=== PATIENT | female | born 1930 | race Caucasian/White ===

== ENCOUNTER 2016-10-06 08:05 | Inpatient (IN) | payer MEDICARE, OTHER ==
[~2016-10-06] VITALS: Ht 157.5 cm; Wt 66.2 kg
[2016-10-06 09:21] LABS: RED BLOOD COUNT 5.82 M/UL (4.00-5.10); WHITE BLOOD COUNT 5.5 K/UL (4.5-11.0)
[2016-10-06 09:45] LABS: BUN/CREATININE RATIO 27 (0-10)
[2016-10-06] MEDS ORDERED: PLAVIX 75 MG TA75 MG PO (13:31)
[2016-10-06] MEDS ORDERED: ZOCOR 10 MG TAB10 MG PO (13:31)
[2016-10-06] MEDS ORDERED: SYNTHROID 125125 MCG PO (13:32)
[2016-10-06] MEDS ORDERED: FEOSOL325 MG PO (13:33)
[2016-10-06] MEDS ORDERED: ADVAIR 100-501 EACH INH (13:34)
[2016-10-06] MEDS ORDERED: COLACE 100MG C100 MG PO (13:34)
[2016-10-06] MEDS ORDERED: ASPIR 8181 MG PO (13:34)
[2016-10-06] MEDS ORDERED: PROAIR HFA8.5 GM INH (13:35)
[2016-10-07 05:41] LABS: HEMOGLOBIN 16.3 gm/dl (12.3-15.3); RED BLOOD COUNT 5.32 M/UL (4.00-5.10); WHITE BLOOD COUNT 5.7 K/UL (4.5-11.0)
[2016-10-07 06:08] LABS: BUN/CREATININE RATIO 29 (0-10)
[2016-10-08 04:37] LABS: HEMOGLOBIN 16.2 gm/dl (12.3-15.3); RED BLOOD COUNT 5.22 M/UL (4.00-5.10); WHITE BLOOD COUNT 6.1 K/UL (4.5-11.0)
[2016-10-08 04:53] LABS: BUN/CREATININE RATIO 27 (0-10)
[2016-10-09 04:46] LABS: HEMOGLOBIN 15.9 gm/dl (12.3-15.3); RED BLOOD COUNT 5.19 M/UL (4.00-5.10); WHITE BLOOD COUNT 5.5 K/UL (4.5-11.0)
[2016-10-09 05:01] LABS: BUN/CREATININE RATIO 27 (0-10)
[2016-10-11 05:43] LABS: RED BLOOD COUNT 5.59 M/UL (4.00-5.10); WHITE BLOOD COUNT 5.5 K/UL (4.5-11.0)
[2016-10-11 06:12] LABS: BUN/CREATININE RATIO 40 (0-10)
[2016-10-13 06:27] LABS: HEMOGLOBIN 17.2 gm/dl (12.3-15.3); RED BLOOD COUNT 5.52 M/UL (4.00-5.10); WHITE BLOOD COUNT 5.1 K/UL (4.5-11.0)
[2016-10-13 06:53] LABS: BUN/CREATININE RATIO 33 (0-10)
== END 2016-10-13 19:32 | DRG 189 ==
LOC: ER1 08:05 → ZEROF 11:31 → CCU 13:55 → M/S 10-07 15:15
PROVIDERS: Internal Medicine; Specialist/Technologist Athletic Trainer; ADMIT Family Medicine
DX: J96.22 Acute and chronic respiratory failure with hypercapnia (principal); J96.21 Acute and chronic respiratory failure with hypoxia; Z99.81 Dependence on supplemental oxygen; J44.9 Chronic obstructive pulmonary disease, unspecified; F17.210 Nicotine dependence, cigarettes, uncomplicated; Z91.19 Patient's noncompliance with other medical treatment and regimen; Z79.82 Long term (current) use of aspirin; Z79.899 Other long term (current) drug therapy; E03.9 Hypothyroidism, unspecified; I25.10 Atherosclerotic heart disease of native coronary artery without angina pectoris; Z95.5 Presence of coronary angioplasty implant and graft; D75.89 Other specified diseases of blood and blood-forming organs; K58.1 Irritable bowel syndrome with constipation; Z88.8 Allergy status to other drugs, medicaments and biological substances; I27.2 Other secondary pulmonary hypertension; D75.1 Secondary polycythemia
CPT/HCPCS: ECHO; 36415; 36600; 71010; 71020; 71250; 80048; 80053; 82550; 82553; 82607; 82746; 82803; 83874; 83880; 84443; 84484; 85025; 85027; 87070; 87205; 93005; 93306; 94640; 94660; 94664; 96374; 97110; 97116; 97530; 97535; 99285; J1650; J1940; J2930; J7040

== ENCOUNTER 2020-10-05 09:39 | Inpatient (IN) | payer MEDICARE, OTHER ==
[~2020-10-05] VITALS: Ht 162.6 cm; Wt 45.4 kg
[~2020-10-05 09:39] MED LIST: ADVAIR 100-501 EACH INH; ADVAIR 250-501 EACH INH; ASPIR 8181 MG PO; AUGMENTIN 875-1 EACH PO; COLACE 100MG C100 MG PO; ELIQUIS 2.5 MG2.5 MG PO; ENOXAPARIN40 MG/0.4 SC; FEOSOL325 MG PO; IPRAT-ALBUT 0.5-3 ML NEB; MEDROL TAB 4 MG4 MG PO; MIRALAX17 GM PO; PLAVIX 75 MG TA75 MG PO; SYNTHROID 100100 MCG PO; TYLENOL325 MG PO
[2020-10-05 11:17] LABS: HEMOGLOBIN 14.6 gm/dl (12.3-15.3); RED BLOOD COUNT 4.96 M/UL (4.00-5.10)
[2020-10-05 11:49] LABS: BUN/CREATININE RATIO 28 (0-10)
[2020-10-06 04:13] LABS: BUN/CREATININE RATIO 33 (0-10)
[2020-10-06 04:33] LABS: HEMOGLOBIN 11.5 gm/dl (12.3-15.3); RED BLOOD COUNT 4.12 M/UL (4.00-5.10); WHITE BLOOD COUNT 1.8 K/UL (4.5-11.0)
[2020-10-06] MEDS ORDERED: LEVOTHYROXINE88 MCG PO (06:18)
[2020-10-06 07:07] LABS: ACINETOBACTER BAUMANNII Not Detected (Negative); CANDIDA ALBICANS Not Detected (Negative); CANDIDA KRUSEI Not Detected (Negative); CANDIDA TROPICALIS Not Detected (Negative); ENTEROCOCCUS Not Detected (Negative); ESCHERICHIA COLI Not Detected (Negative); HAEMOPHILUS INFLUENZAE Not Detected (Negative); KLEBSIELLA OXYTOCA Not Detected (Negative); KLEBSIELLA PNEUMONIAE Not Detected (Negative); KPC-CARBAPENEM-RESISTANCE GENE Not Detected (Negative); PROTEUS Not Detected (Negative); PSEUDOMONAS AERUGINOSA Not Detected (Negative); SERRATIA MARCESANS Not Detected (Negative); STAPHYLOCOCCUS AUREUS Not Detected (Negative); STREP AGALACTIAE (GROUP B) Not Detected (Negative); STREP PYOGENES (GROUP A) Not Detected (Negative); STREPTOCOCCUS Not Detected (Negative); vanA/B (VANCOMYCIN RESIST GENE Not Detected (Negative)
[2020-10-06 08:51] LABS: STAPHYLOCOCCUS DETECTED (Negative); mecA (METHICILLIN RESIST GENE DETECTED (Negative)
[2020-10-06] MEDS ORDERED: ADVAIR 250-501 EACH INH (10:05)
[2020-10-06] MEDS ORDERED: IPRAT-ALBUT 0.5-3 ML INH (10:37)
[2020-10-06] MEDS ORDERED: SIMVASTATIN10 MG PO (13:31)
[2020-10-06] MEDS ORDERED: PROAIR HFA8.5 GM INH (13:35)
[2020-10-08 09:38] LABS: BUN/CREATININE RATIO 28 (0-10)
[2020-10-08 11:04] LABS: WHITE BLOOD COUNT 9.2 K/UL (4.5-11.0)
[2020-10-08 11:05] LABS: RED BLOOD COUNT 4.8 M/UL (4.00-5.10)
[2020-10-08 11:06] LABS: HEMOGLOBIN 13.9 gm/dl (12.3-15.3)
--- NOTE | 2020-10-09 01:32 | NUR ---
DR CORDOBA PAGED REGARDING CARDIAC RYTHYM CHANGE, EKG GOTTEN
[2020-10-11 09:23] LABS: HEMOGLOBIN 13.6 gm/dl (12.3-15.3); RED BLOOD COUNT 4.69 M/UL (4.00-5.10); WHITE BLOOD COUNT 6.1 K/UL (4.5-11.0)
[2020-10-11 10:43] LABS: BUN/CREATININE RATIO 27 (0-10)
[2020-10-12 05:27] LABS: HEMOGLOBIN 13.1 gm/dl (12.3-15.3); RED BLOOD COUNT 4.6 M/UL (4.00-5.10); WHITE BLOOD COUNT 4.7 K/UL (4.5-11.0)
[2020-10-12 05:51] LABS: BUN/CREATININE RATIO 15 (0-10)
[2020-10-13 02:49] LABS: HEMOGLOBIN 12.3 gm/dl (12.3-15.3); RED BLOOD COUNT 4.33 M/UL (4.00-5.10); WHITE BLOOD COUNT 4.8 K/UL (4.5-11.0)
[2020-10-13 03:34] LABS: BUN/CREATININE RATIO 12 (0-10)
[2020-10-14 04:39] LABS: HEMOGLOBIN 12.7 gm/dl (12.3-15.3); RED BLOOD COUNT 4.46 M/UL (4.00-5.10); WHITE BLOOD COUNT 3.7 K/UL (4.5-11.0)
[2020-10-14 05:06] LABS: BUN/CREATININE RATIO 17 (0-10)
[2020-10-14] MEDS ORDERED: AUGMENTIN 875-1 EACH PO (16:40)
[2020-10-14] MEDS ORDERED: LIBRIUM 5 MG CAP5 MG PO (16:42)
== END 2020-10-15 16:00 | DRG 177 ==
LOC: ER1 09:39 → MED SURG 4 18:35 → CDU 18:35 → MED SURG 4 10-06 22:10
PROVIDERS: Emergency Medicine; Internal Medicine; ADMIT Internal Medicine
PROC: XW033E5 Introduction of Remdesivir Anti-infective into Peripheral Vein, Percutaneous Approach, New Technology Group 5 (ICD-10-PCS; principal; 2020-10-05)
PROC: 3E0333Z Introduction of Anti-inflammatory into Peripheral Vein, Percutaneous Approach (ICD-10-PCS; 2020-10-05)
PROC: 8E0ZXY6 Isolation (ICD-10-PCS; 2020-10-06)
DX: U07.1 COVID-19 (principal); J12.82 Pneumonia due to coronavirus disease 2019; J69.0 Pneumonitis due to inhalation of food and vomit; J96.21 Acute and chronic respiratory failure with hypoxia; G93.41 Metabolic encephalopathy; N39.0 Urinary tract infection, site not specified; J44.0 Chronic obstructive pulmonary disease with (acute) lower respiratory infection; J90 Pleural effusion, not elsewhere classified; B96.20 Unspecified Escherichia coli [E. coli] as the cause of diseases classified elsewhere; E03.9 Hypothyroidism, unspecified; I48.91 Unspecified atrial fibrillation; I25.10 Atherosclerotic heart disease of native coronary artery without angina pectoris; E78.00 Pure hypercholesterolemia, unspecified; Z96.643 Presence of artificial hip joint, bilateral; E86.0 Dehydration; E87.6 Hypokalemia; Z95.5 Presence of coronary angioplasty implant and graft; Z80.3 Family history of malignant neoplasm of breast; Z87.891 Personal history of nicotine dependence; Z98.890 Other specified postprocedural states; Z79.82 Long term (current) use of aspirin; Z79.890 Hormone replacement therapy
CPT/HCPCS: 36415; 36600; 71045; 80048; 80053; 81001; 82140; 82550; 82553; 82803; 83605; 83690; 83735; 83880; 84100; 84132; 84484; 85025; 85027; 85379; 85610; 85730; 87040; 87077; 87086; 87150; 87186; 92526; 92610; 93005; 94640; 94664; 94760; 96374; 97116-GP-CQ; 97161; 97530; 97530-GP-CQ; 99285; J0696; J1100; J1335; J1650; J2060; J3480; J3486; J7030; Q9967; U0002